=== PATIENT | female | born 1995 | race Caucasian/White ===

== ENCOUNTER 2017-11-26 20:02 | Emergency (ER) | payer OTHER ==
[~2017-11-26] VITALS: Ht 154.9 cm; Wt 64.9 kg
== END 2017-11-26 21:58 | disposition home or self-care (01) ==
LOC: ER 20:02
DX: J06.9 Acute upper respiratory infection, unspecified (principal); Z33.1 Pregnant state, incidental

== ENCOUNTER → 2018-01-25 | Emergency (ER) | payer OTHER ==
[~2018-01-25] VITALS: Ht 152.4 cm; Wt 63.0 kg
== END | disposition home or self-care (01) ==
LOC: ER 18:32
DX: Z34.01 Encounter for supervision of normal first pregnancy, first trimester (principal); O20.8 Other hemorrhage in early pregnancy

== ENCOUNTER 2018-02-25 20:16 | Inpatient (IN) | payer OTHER ==
[~2018-02-25] VITALS: Wt 5.0 kg
== END 2018-03-04 14:03 | disposition home or self-care (01) | DRG 781 ==
LOC: ER 20:16 → OB/GYN 02-26 07:33
PROC: 4A1HXCZ Monitoring of Products of Conception, Cardiac Rate, External Approach (ICD-10-PCS; principal; 2018-02-26)
DX: O23.02 Infections of kidney in pregnancy, second trimester (principal); B96.20 Unspecified Escherichia coli [E. coli] as the cause of diseases classified elsewhere; O23.42 Unspecified infection of urinary tract in pregnancy, second trimester; Z3A.18 18 weeks gestation of pregnancy

== ENCOUNTER 2018-06-23 22:51 | Outpatient (CLI) | payer OTHER ==
[2018-06-24] MEDS ORDERED: IRON325 MG PO (07:24)
[2018-06-24] MEDS ORDERED: PRENATAL TABLE1 EAC2 PO (07:24)
== END 2018-06-24 17:09 | disposition home or self-care (01) ==
LOC: OBS/DEL 22:51
DX: O26.893 Other specified pregnancy related conditions, third trimester (principal); R10.2 Pelvic and perineal pain; Z34.03 Encounter for supervision of normal first pregnancy, third trimester

== ENCOUNTER 2018-07-18 00:44 | Inpatient (IN) | payer OTHER ==
[~2018-07-18] VITALS: Ht 154.9 cm; Wt 3.2 kg
[~2018-07-18 00:44] MED LIST: IRON325 MG PO; PRENATAL TABLE1 EAC2 PO
[2018-07-18] MEDS ORDERED: CEPHALEXIN500 MG PO (02:00)
== END 2018-07-21 11:26 | DRG 766 ==
LOC: LDR 00:44 → OB/GYN 00:44 → LDR 05:39 → OB/GYN 19:23
PROVIDERS: Obstetrics & Gynecology
PROC: 4A1HXCZ Monitoring of Products of Conception, Cardiac Rate, External Approach (ICD-10-PCS; 2018-07-18)
PROC: 4A033R1 Measurement of Arterial Saturation, Peripheral, Percutaneous Approach (ICD-10-PCS; 2018-07-18)
PROC: 0UB10ZZ Excision of Left Ovary, Open Approach (ICD-10-PCS; 2018-07-18)
PROC: 10D00Z1 Extraction of Products of Conception, Low, Open Approach (ICD-10-PCS; principal; 2018-07-18 18:00)
DX: O62.0 Primary inadequate contractions (principal); Z37.0 Single live birth; Z3A.39 39 weeks gestation of pregnancy; O34.83 Maternal care for other abnormalities of pelvic organs, third trimester; N83.292 Other ovarian cyst, left side